=== PATIENT | female | born 1990 | race African-American/Black ===

== ENCOUNTER 2016-12-12 01:53 | Emergency (ER) | payer OTHER ==
[2016-12-12 02:02] VITALS: BP 152/80; PULSE 113; RESP 24; TEMP 97.8
[2016-12-12] MEDS ORDERED: LORazepam 1 MG TAB PO STA (02:09)
--- NOTE | 2016-12-12 02:13 | ED ---
General Adult HPI - General Chief complaint: Anxiety Stated complaint: Anxiety, 20 min attack Time Seen by Provider: 12/12/16 02:06 Source: patient, RN notes reviewed Mode of arrival: wheelchair Limitations: no limitations - History of Present Illness Initial comments: 26-year-old female presents emergency Department chief complaint of anxiety attack. Patient states she has a history of anxiety she's been more stressed lately and she went into an anxiety attack. Patient states she didn't when describing fatty mesentery past but she does not have them anymore. Patient states she has no thoughts of suicide or any homicidal thoughts. Patient states just went into her typical anxiety attack she cannot calm herself down at home so she thought that she should be seen.Patient denies any recent fever, chills, shortness of breath, chest pain, back pain, abdominal pain, nausea vomiting, numbness or tingling, dysuria or hematuria, constipation or diarrhea, headaches or visual changes, or any other current symptoms. - Related Data Home Medications Medication Instructions Recorded Confirmed [id number] Fe Control 1 tab PO DAILY 03/18/15 03/18/15 Previous Rx's Medication Instructions Recorded Ibuprofen [Motrin] 800 mg PO Q8HR PRN #21 tab 03/18/15 Ondansetron HCl [Zofran] 4 mg PO Q8HR PRN #12 tab 03/18/15 Allergies Allergy/AdvReac Type Severity Reaction Status Date / Time No Known Allergies Allergy Verified 12/12/16 02:02 Review of Systems ROS Statement: Those systems with pertinent positive or pertinent negative responses have been documented in the HPI. ROS Other: All systems not noted in ROS Statement are negative. Past Medical History Past Medical History: No Reported History Additional Past Medical History / Comment(s): ITP, bone marrow transplant age 11 History of Any Multi-Drug Resistant Organisms: None Reported Past Surgical History: No Surgical Hx Reported Additional Past Surgical History / Comment(s): Bone marrow transplant Past Anesthesia/Blood Transfusion Reactions: No Reported Reaction Past Psychological History: Anxiety Smoking Status: Former smoker Past Alcohol Use History: Occasional Past Drug Use History: Marijuana - Past Family History Mother History Unknown: Yes General Exam Limitations: no limitations General appearance: alert, anxious Neck exam: Present: normal inspection. Absent: tenderness, meningismus, lymphadenopathy Respiratory exam: Present: normal lung sounds bilaterally. Absent: respiratory distress, wheezes, rales, rhonchi, stridor Cardiovascular Exam: Present: regular rate, normal rhythm, normal heart sounds. Absent: systolic murmur, diastolic murmur, rubs, gallop, clicks Neurological exam: Present: alert, oriented X3 Psychiatric exam: Present: anxious Skin exam: Present: warm, dry, intact, normal color. Absent: rash Course Vital Signs 12/12/16 01:57 Temperature 97.8 F Pulse Rate 113 H Respiratory 24 Rate Blood Pressure 152/80 O2 Sat by Pulse 100 Oximetry Medical Decision Making - Medical Decision Making 26-year-old female presents for an acute anxiety attack. Patient has history of anxiety attacks and this is much like her normal attack. At this time we did give her an Ativan. We did give her referral forms for counselors in the area. Discussed return parameters and follow-up and all the patient's questions. They state Rahul they are negative plan. All questions have been answered. This time they will be discharged home. Disposition Clinical Impression: Acute anxiety Disposition: HOME SELF-CARE Condition: Stable Instructions: Generalized Anxiety Disorder (ED) Additional Instructions: Please use medication as discussed. Please follow up with family doctor if symptoms have not improved over the next two days. Please return to the emergency room if your symptoms increase or worsen or for any other concerns. Referrals: Leon Rogers MD [Primary Care Provider] - 1-2 days Time of Disposition: 02:12
== END 2016-12-12 02:28 | disposition home or self-care (01) ==
LOC: EC 01:53
DX: F41.9 Anxiety disorder, unspecified (principal); Z87.891 Personal history of nicotine dependence; Z79.899 Other long term (current) drug therapy
CPT/HCPCS: 99283

== ENCOUNTER → 2017-10-29 | Outpatient (CLI) | payer OTHER ==
--- NOTE | 2017-10-30 10:07 | US ---
EXAMINATION TYPE: US thyroid st tissue head/neck DATE OF EXAM: 10/29/2017 COMPARISON: NONE CLINICAL HISTORY: R22.1 right neck mass or swelling. Abnormal clinical findings GLAND SIZE: Right Lobe: 6.2 x 1.7 x 1.9 cm Overall Parenchyma: homogenous Left Lobe: 4.9 x 1.2 x 1.7 cm Overall Parenchyma: homogeneous Isthmus Thickness: 0.3 cm NODULES RIGHT: # of nodules measured on right: 0 LEFT: # of nodules measured on left: 0 ISTHMUS: # of nodules measured in the isthmus: 0 Right thyroid lobe enlarged. Bilateral neck scanned, no evidence of lymphadenopathy. IMPRESSION: 1. Enlarged right lobe thyroid
== END | disposition home or self-care (01) ==
LOC: RADUSWWP 17:04
PROVIDERS: ATTEND Internal Medicine
DX: E04.9 Nontoxic goiter, unspecified (principal)
CPT/HCPCS: 76536

== ENCOUNTER 2018-08-10 01:22 | Emergency (ER) | payer OTHER ==
[2018-08-10] MEDS ORDERED: SODIUM CHLORIDE 0.9% 500 ML 500 ML IV STA (01:44)
[2018-08-10] MEDS ORDERED: MAG HYDROX/AL HYDROX/SIMETH 30 ML CUP PO STA (01:44)
[2018-08-10 02:24] LABS: Basophils % (A) 0 %; Eosinophils # (A) 0.1 k/uL (0-0.7); Eosinophils % (A) 3 %; HCT 31.9 % (34.0-46.0); HGB 10.2 gm/dL (11.4-16.0); Hypochromasia Slight; Lymphocytes # (A) 1.8 k/uL (1.0-4.8); Lymphocytes % (A) 45 %; MCH 24.1 pg (25.0-35.0); MCHC 31.9 g/dL (31.0-37.0); MCV 75.5 fL (80.0-100.0); Microcytosis Slight; Monocytes # (A) 0.2 k/uL (0-1.0); Monocytes % (A) 6 %; Neutrophils # (A) 1.6 k/uL (1.3-7.7); Neutrophils % (A) 42 %; Platelet Count 209 k/uL (150-450); RBC 4.22 m/uL (3.80-5.40); RDW 15.7 % (11.5-15.5); WBC 3.9 k/uL (3.8-10.6)
[2018-08-10 02:34] LABS: ALT 11 U/L (9-52); AST 40 U/L (14-36); Albumin 4.4 g/dL (3.5-5.0); Alkaline Phosphatase 96 U/L (38-126); Anion Gap 9 mmol/L; Blood Urea Nitrogen 13 mg/dL (7-17); Calcium 9.8 mg/dL (8.4-10.2); Carbon Dioxide 23 mmol/L (22-30); Chloride 105 mmol/L (98-107); Glucose 94 mg/dL (74-99); Magnesium 1.9 mg/dL (1.6-2.3); Sodium 137 mmol/L (137-145); Total Bilirubin 0.9 mg/dL (0.2-1.3); Total Protein 7.3 g/dL (6.3-8.2)
[2018-08-10 02:40] LABS: D-Dimer 0.27 mg/L FEU (<0.60); Partial Thromboplastin Time 24.9 sec (22.0-30.0); Potassium 3.9 mmol/L (3.5-5.1); Prothrombin Time 10.7 sec (9.0-12.0)
--- NOTE | 2018-08-10 02:51 | XR ---
EXAM: XR Chest, 2 Views CLINICAL HISTORY: ITS.REASON XR Reason: Chest Pain TECHNIQUE: Frontal and lateral views of the chest. COMPARISON: No relevant prior studies available. FINDINGS: Lungs: Unremarkable. No consolidation. Pleural space: Unremarkable. No pneumothorax. Heart: Unremarkable. No cardiomegaly. Mediastinum: Unremarkable. Bones/joints: Unremarkable. IMPRESSION: Normal chest x-rays.
--- NOTE | 2018-08-10 02:54 | ED ---
Chest Pain HPI - General Chief Complaint: Chest Pain Stated Complaint: CHEST PAIN Time Seen by Provider: 08/10/18 01:33 Source: patient Mode of arrival: wheelchair Limitations: no limitations - History of Present Illness Initial Comments: 28-year-old female patient presents to the emergency department today for evaluation of chest pain. Patient say she has had the pain for the last 6-1/2 hours. Patient states she's been having a lot of abdominal gas throughout the day, states she can feel her stomach rumbling. Patient states the pressure has throughout the day and started radiating into her chest. States the pain started across her entire chest, then migrated to the left side. Patient states the pain increases and takes a deep breath. Patient states the pain has been intermittent. She denies any cough or hemoptysis with this. Denies any history of similar symptoms. Denies taking any medication for symptom relief. She denies any shortness of breath, fever, chills denies any radiation of the pain to her back. Denies any use of oral contraceptives. Denies any calf pain, leg swelling, recent travel, or history of DVT. Patient denies any recent rash, nausea, vomiting, diarrhea, constipation, back pain, numbness, tingling, dizziness, weakness, hematuria, dysuria, urinary urgency, urinary frequency, headache, visual changes, or any other complaints. - Related Data Home Medications Medication Instructions Recorded Confirmed Dextroamphetamine/Amphetamine 20 mg PO DAILY 08/10/18 08/10/18 [Adderall] Allergies Allergy/AdvReac Type Severity Reaction Status Date / Time No Known Allergies Allergy Verified 12/12/16 02:02 Review of Systems ROS Statement: Those systems with pertinent positive or pertinent negative responses have been documented in the HPI. ROS Other: All systems not noted in ROS Statement are negative. EKG Findings - EKG Comments: EKG Findings:: EKG obtained at shows normal sinus rhythm with a ventricular rate is 72, AR interval 188, QRS duration 98, QT 380, QTc 416. No evidence of ST elevation or depression. Past Medical History Past Medical History: No Reported History Additional Past Medical History / Comment(s): ITP, bone marrow transplant age 11 History of Any Multi-Drug Resistant Organisms: None Reported Past Surgical History: No Surgical Hx Reported Additional Past Surgical History / Comment(s): Bone marrow transplant Past Anesthesia/Blood Transfusion Reactions: No Reported Reaction Past Psychological History: Anxiety Smoking Status: Former smoker Past Alcohol Use History: Occasional Past Drug Use History: Marijuana - Past Family History Mother History Unknown: Yes General Exam Limitations: no limitations Course Vital Signs 08/10/18 01:26 Temperature 98.4 F Pulse Rate 83 Respiratory 20 Rate Blood Pressure 115/68 O2 Sat by Pulse 99 Oximetry Chest Pain [facility]: Two-view x-ray of the chest is obtained. Report was reviewed in its entirety. Impression by Dr. Solomon shows normal chest x-rays. MDM: 28 year-old female patient presented to the emergency department today for evaluation of chest pain. She also reports abdominal gas and bloating. Physical examination is unremarkable. Abdomen is soft and nontender tender. Lungs are clear to auscultation with good air movement. Vital signs are stable. Labs reviewed and are unremarkable. Negative d-dimer, negative troponin. Chest x-ray shows no acute cardiopulmonary process. Did discuss findings and results with the patient which is given a dose of Maalox here in the emergency department. She'll be discharged this time to follow-up with her primary care physician for recheck in 1-2 days. Return parameters discussed in detail. She verbalizes understanding and agrees with this plan. Disposition Clinical Impression: Chest pain Disposition: HOME SELF-CARE Condition: Good Instructions (If sedation given, give patient instructions): Chest Pain (ED) Additional Instructions: Continue [id number] gas medication as necessary. Follow-up with her primary care physician for recheck in 1-2 days. Return to the emergency department immediately for any new, worsening, or concerning symptoms Is patient prescribed a controlled substance at d/c from ED?: No Referrals: Leon Rogers MD [Primary Care Provider] - 1-2 days Time of Disposition: 02:54
[2018-08-10 03:30] VITALS: BP 136/69; PULSE 59; RESP 14; TEMP 98.2
== END 2018-08-10 03:30 | disposition home or self-care (01) ==
LOC: EC 01:22
DX: R07.9 Chest pain, unspecified (principal); Z79.899 Other long term (current) drug therapy; Z87.891 Personal history of nicotine dependence; Z94.81 Bone marrow transplant status
CPT/HCPCS: 36415; 71046; 80053; 83735; 84484; 85025; 85379; 85610; 85730; 93005; 99285

== ENCOUNTER 2019-01-07 00:26 | Emergency (ER) | payer BC, OTHER ==
[2019-01-07 00:31] VITALS: BP 142/89; PULSE 90; RESP 18; TEMP 98
[2019-01-07] MEDS ORDERED: SULFAMETH-TMP DS STARTER PACK 2 TAB BTL PO STA (01:04)
--- NOTE | 2019-01-07 01:06 | ED ---
Skin/Abscess/FB HPI - General Chief complaint: Skin/Abscess/Foreign Body Stated complaint: Abscess/redness on breast Time Seen by Provider: 01/07/19 00:47 Source: patient Mode of arrival: ambulatory - History of Present Illness Initial comments: 28 year-old female patient presents to the emergency department today for evaluation of painful itchy lesions to her breast. Patient states she notices over the last 2 days. Patient states that she is concerned for possible bug bite. She denies any fever or chills. Denies any significant pain to the area. States the areas are mildly itchy. Denies any drainage from the lesions or her nipples. Patient states she has had abscess to her left axilla in the past, this was never cultured. She denies taking any medication for her symptoms. Patient denies any recent shortness breath, chest pain, abdominal pain, nausea, vomiting, diarrhea, constipation, back pain, numbness, tingling, dizziness, weakness, hematuria, dysuria, urinary urgency, urinary frequency, headache, visual changes, or any other complaints. - Related Data Home Medications Medication Instructions Recorded Confirmed Dextroamphetamine/Amphetamine 20 mg PO DAILY 08/10/18 08/10/18 [Adderall] Previous Rx's Medication Instructions Recorded Hydrocortisone Cream 1 applic TOPICAL TID PRN #15 gm 01/07/19 [Hydrocortisone 1% Cream] Sulfamethoxazole/Trimethoprim 1 each PO BID #20 tablet 01/07/19 [Bactrim DS 800-160 mg] Allergies Allergy/AdvReac Type Severity Reaction Status Date / Time No Known Allergies Allergy Verified 01/07/19 00:31 Review of Systems ROS Statement: Those systems with pertinent positive or pertinent negative responses have been documented in the HPI. ROS Other: All systems not noted in ROS Statement are negative. Past Medical History Past Medical History: No Reported History Additional Past Medical History / Comment(s): ITP, bone marrow transplant age 11 History of Any Multi-Drug Resistant Organisms: None Reported Past Surgical History: No Surgical Hx Reported Additional Past Surgical History / Comment(s): Bone marrow transplant Past Anesthesia/Blood Transfusion Reactions: No Reported Reaction Past Psychological History: Anxiety Smoking Status: Former smoker Past Alcohol Use History: Occasional Past Drug Use History: Marijuana - Past Family History Mother History Unknown: Yes General Exam General appearance: alert, in no apparent distress, other (Physical well- developed, well-nourished adult female patient in no acute distress. Vital signs upon presentation are temperature 98.0F, pulse 90, respirations 18, blood pressure 142/89, pulse ox 100% on room air.) Eye exam: Present: normal appearance, PERRL, EOMI. Absent: scleral icterus, conjunctival injection, periorbital swelling Respiratory exam: Present: normal lung sounds bilaterally. Absent: respiratory distress, wheezes, rales, rhonchi, stridor Cardiovascular Exam: Present: regular rate, normal rhythm, normal heart sounds. Absent: systolic murmur, diastolic murmur, rubs, gallop, clicks Neurological exam: Present: alert, oriented X3, CN II-XII intact Psychiatric exam: Present: normal affect, normal mood Skin exam: Present: warm, dry, intact, normal color, other (Patient has two reddened, circular lesions on the left breast, both 1cm in diameter. No drain age. No fluctuance. There is some induration. ). Absent: rash Course Vital Signs 01/07/19 00:29 Temperature 98 F Pulse Rate 90 Respiratory 18 Rate Blood Pressure 142/89 O2 Sat by Pulse 100 Oximetry Medical Decision Making - Medical Decision Making 28 old female patient percents to the emergency department today for evaluation of lesions to the left breast. Patient states they are mildly painful and somewhat itchy. There is no drainage. These could be early abscess or bug b ites. Patient be given prescription for hydrocortisone cream and Bactrim. She is instructed to apply warm compresses. She is instructed to follow-up with her primary care physician for recheck in 1-2 days. Return parameters were discussed in detail. She verbalizes understanding and agrees with this plan. Disposition Clinical Impression: Breast abscess Disposition: HOME SELF-CARE Condition: Good Instructions (If sedation given, give patient instructions): Insect Bite or S ting (ED), Abscess (ED) Additional Instructions: Complete antibiotic prescription in full. Apply hydrocortisone cream 2-3 times per day. Apply warm compresses 2-3 times per day. Follow-up with her primary care physician for recheck in 1-2 days. Return to the emergency department immediately for any new, worsening, or concerning symptoms. Prescriptions: Sulfamethoxazole/Trimethoprim [Bactrim DS 800-160 mg] 1 each PO BID #20 tablet Hydrocortisone Cream [Hydrocortisone 1% Cream] 1 applic TOPICAL TID PRN #15 gm PRN Reason: Itching Is patient prescribed a controlled substance at d/c from ED?: No Referrals: Leon Rogers MD [Primary Care Provider] - 1-2 days Time of Disposition: 01:05
== END 2019-01-07 01:32 | disposition home or self-care (01) ==
LOC: EC 00:26
DX: N61.1 Abscess of the breast and nipple (principal); Z87.891 Personal history of nicotine dependence; Z87.2 Personal history of diseases of the skin and subcutaneous tissue
CPT/HCPCS: 99283

== ENCOUNTER 2019-08-09 19:04 | Inpatient (IN) | payer BC, OTHER ==
[2019-08-09] MEDS ORDERED: SODIUM CHLORIDE 0.9% 1,000 ML IV ONE (19:43)
[2019-08-09] MEDS ORDERED: ACETAMINOPHEN TAB 325 MG TAB PO STA (19:43)
--- NOTE | 2019-08-09 20:04 | ED ---
General Adult HPI - General Chief complaint: Nausea/Vomiting/Diarrhea Stated complaint: Dehydration Time Seen by Provider: 08/09/19 19:14 Source: patient, RN notes reviewed, old records reviewed Mode of arrival: wheelchair Limitations: no limitations - History of Present Illness Initial comments: 29-year-old female patient presents to evaluation of cough, fever, nausea for the last 2 weeks. Reports generalized myalgias. Patient concerned that she has grown worse. Reports that she did have episodes of nausea and vomiting today when she was brushing her teeth and she gagged on the toothbrush. Denies chest pain. Denies any other complaints at this time. Systemic: Pt denies fatigue, rash. Pt denies weakness, night sweats, weight loss. Neuro: Pt denies headache, visual disturbances, syncope or pre-syncope. HEENT: Pt denies ocular discharge or irritation, otalgia, rhinorrhea, pharyngitis or notable lymphadenopathy. Cardiopulmonary: Pt denies chest pain, SOB, heart palpitations, dyspnea on exertion. Abdominal/GI: Pt denies abdominal pain, n/v/d. : Pt denies dysuria, burning w/ urination, frequency/urgency. Denies new onset urinary or bowel incontinence. MSK: Pt denies myalgia, loss of strength or function in extremities. Neuro: Pt denies new onset weakness, paresthesias. - Related Data Home Medications Medication Instructions Recorded Confirmed Dextroamphetamine/Amphetamine 20 mg PO DAILY 08/10/18 08/10/18 [Adderall] Previous Rx's Medication Instructions Recorded Hydrocortisone Cream 1 applic TOPICAL TID PRN #15 gm 01/07/19 [Hydrocortisone 1% Cream] Sulfamethoxazole/Trimethoprim 1 each PO BID #20 tablet 01/07/19 [Bactrim DS 800-160 mg] Allergies Allergy/AdvReac Type Severity Reaction Status Date / Time amoxicillin Allergy Unknown Verified 08/09/19 19:08 Review of Systems ROS Statement: Those systems with pertinent positive or pertinent negative responses have been documented in the HPI. ROS Other: All systems not noted in ROS Statement are negative. Past Medical History Past Medical History: No Reported History Additional Past Medical History / Comment(s): ITP, bone marrow transplant age 11 History of Any Multi-Drug Resistant Organisms: None Reported Past Surgical History: No Surgical Hx Reported Additional Past Surgical History / Comment(s): Bone marrow transplant Past Anesthesia/Blood Transfusion Reactions: No Reported Reaction Past Psychological History: Anxiety Smoking Status: Former smoker Past Alcohol Use History: None Reported Past Drug Use History: None Reported - Past Family History Mother History Unknown: Yes General Exam - General Exam Comments Initial Comments: Constitutional: NAD, AOX3, Pt has pleasant affect. HEENT: NC/AT, trachea midline, neck supple, no lymphadenopathy. Posterior pharynx non erythematous, without exudates. External ears appear normal, without discharge. Mucous membranes moist. Eyes PERRLA, EOM intact. There is no scleral icterus. No pallor noted. Cardiopulmonary: RRR, no murmurs, rubs or gallops, no JVD noted. Lungs CTAB in anterior and posterior ghotra. No peripheral edema. Abdominal exam: Abdomen soft and non-distended. Abdomen non-tender to palpation in all 4 quadrants. Bowel sounds active in LLQ. No hepatosplenomegaly. No ecchymosis Neuro: CN II-XII grossly intact. No nuchal rigidity. No raccon eyes, no traore sign, no hemotympanum. No cervical spinal tenderness. MSK: No posterior calf tenderness bilaterally, homans sign negative bilaterally. Posterior tibialis and radial pulse +2 bilaterally. Sensation intact in upper and lower extremities. Full active ROM in upper and lower extremities, 5/5 stregnth. Limitations: no limitations Course Vital Signs 08/09/19 08/09/19 19:06 22:14 Temperature 99.8 F H Pulse Rate 90 81 Respiratory 18 20 Rate Blood Pressure 121/83 127/80 O2 Sat by Pulse 98 99 Oximetry Medical Decision Making - Medical Decision Making 29-year-old male patient presents ED for evaluation of cough fever last 2 weeks. Some nausea and vomiting. Vital signs stable. Physical exam is acute pathology. Patient coughing in the room. Laboratory investigations are significant for patient being covered positive. Chest x-ray displayed a bilateral pneumonia. Patient is not in acute respiratory distress.Pt will be admitted for further evaluation and monitoring. Case discussed with Dr. Wetzel. - Lab Data Result diagrams: 08/09/19 20:08 08/09/19 20:08 Lab Results 08/09/19 08/09/19 08/09/19 Range/Units 19:45 20:05 20:05 WBC (3.8-10.6) k/uL RBC (3.80-5.40) m/uL Hgb (11.4-16.0) gm/dL Hct (34.0-46.0) % MCV (80.0-100.0) fL MCH (25.0-35.0) pg MCHC (31.0-37.0) g/dL RDW (11.5-15.5) % Plt Count (150-450) k/uL Neutrophils % % Lymphocytes % % Monocytes % % Eosinophils % % Basophils % % Neutrophils # (1.3-7.7) k/uL Lymphocytes # (1.0-4.8) k/uL Monocytes # (0-1.0) k/uL Eosinophils # (0-0.7) k/uL Basophils # (0-0.2) k/uL Hypochromasia Microcytosis Sodium (137-145) mmol/L Potassium (3.5-5.1) mmol/L Chloride (98-107) mmol/L Carbon Dioxide (22-30) mmol/L Anion Gap mmol/L BUN (7-17) mg/dL Creatinine (0.52-1.04) mg/dL Est GFR (CKD-EPI)AfAm (>60 ml/min/1.73 sqM) Est GFR (CKD-EPI)NonAf (>60 ml/min/1.73 sqM) Glucose (74-99) mg/dL Plasma Lactic Acid Shorty (0.7-2.0) mmol/L Calcium (8.4-10.2) mg/dL Total Bilirubin (0.2-1.3) mg/dL AST (14-36) U/L ALT (4-34) U/L Alkaline Phosphatase (38-126) U/L Total Protein (6.3-8.2) g/dL Albumin (3.5-5.0) g/dL Urine Color Yellow Urine Appearance Cloudy H (Clear) Urine pH 6.5 (5.0-8.0) Ur Specific [place] 1.010 (1.001-1.035) Urine Protein 1+ H (Negative) Urine Glucose (UA) Negative (Negative) Urine Ketones Negative (Negative) Urine Blood Negative (Negative) Urine Nitrite Negative (Negative) Urine Bilirubin Negative (Negative) Urine Urobilinogen <2.0 (<2.0) mg/dL Ur Leukocyte Esterase Negative (Negative) Urine RBC 1 (0-5) /hpf Urine WBC 1 (0-5) /hpf Ur Squamous Epith Cells 9 H (0-4) /hpf Urine Bacteria Rare H (None) /hpf Urine Mucus Rare H (None) /hpf Urine HCG, Qual Not Detected (Not Detectd) Coronavirus (PCR) Detected A (Not Detectd) 08/09/19 08/09/19 08/09/19 Range/Units 20:08 20:08 20:08 WBC 4.7 (3.8-10.6) k/uL RBC 4.71 (3.80-5.40) m/uL Hgb 11.1 L (11.4-16.0) gm/dL Hct 35.5 (34.0-46.0) % MCV 75.5 L (80.0-100.0) fL MCH 23.5 L (25.0-35.0) pg MCHC 31.2 (31.0-37.0) g/dL RDW 15.0 (11.5-15.5) % Plt Count 209 (150-450) k/uL Neutrophils % 72 % Lymphocytes % 20 % Monocytes % 4 % Eosinophils % 0 % Basophils % 0 % Neutrophils # 3.4 (1.3-7.7) k/uL Lymphocytes # 0.9 L (1.0-4.8) k/uL Monocytes # 0.2 (0-1.0) k/uL Eosinophils # 0.0 (0-0.7) k/uL Basophils # 0.0 (0-0.2) k/uL Hypochromasia Marked Microcytosis Slight Sodium 134 L (137-145) mmol/L Potassium 4.0 (3.5-5.1) mmol/L Chloride 94 L (98-107) mmol/L Carbon Dioxide 29 (22-30) mmol/L Anion Gap 11 mmol/L BUN 11 (7-17) mg/dL Creatinine 0.86 (0.52-1.04) mg/dL Est GFR (CKD-EPI)AfAm >90 (>60 ml/min/1.73 sqM) Est GFR (CKD-EPI)NonAf >90 (>60 ml/min/1.73 sqM) Glucose 97 (74-99) mg/dL Plasma Lactic Acid Shorty 1.2 (0.7-2.0) mmol/L Calcium 9.0 (8.4-10.2) mg/dL Total Bilirubin 0.9 (0.2-1.3) mg/dL AST 47 H (14-36) U/L ALT 33 (4-34) U/L Alkaline Phosphatase 111 (38-126) U/L Total Protein 7.7 (6.3-8.2) g/dL Albumin 4.2 (3.5-5.0) g/dL Urine Color Urine Appearance (Clear) Urine pH (5.0-8.0) Ur Specific [place] (1.001-1.035) Urine Protein (Negative) Urine Glucose (UA) (Negative) Urine Ketones (Negative) Urine Blood (Negative) Urine Nitrite (Negative) Urine Bilirubin (Negative) Urine Urobilinogen (<2.0) mg/dL Ur Leukocyte Esterase (Negative) Urine RBC (0-5) /hpf Urine WBC (0-5) /hpf Ur Squamous Epith Cells (0-4) /hpf Urine Bacteria (None) /hpf Urine Mucus (None) /hpf Urine HCG, Qual (Not Detectd) Coronavirus (PCR) (Not Detectd) Disposition Clinical Impression: COVID-19, Pneumonia Disposition: ADMITTED IP TO THIS HOSP Condition: Serious Is patient prescribed a controlled substance at d/c from ED?: No
[2019-08-09 20:32] LABS: Basophils % (A) 0 %; Eosinophils % (A) 0 %; HCT 35.5 % (34.0-46.0); HGB 11.1 gm/dL (11.4-16.0); Hypochromasia Marked; Lymphocytes # (A) 0.9 k/uL (1.0-4.8); Lymphocytes % (A) 20 %; MCH 23.5 pg (25.0-35.0); MCHC 31.2 g/dL (31.0-37.0); MCV 75.5 fL (80.0-100.0); Mean Platelet Volume 7.3; Microcytosis Slight; Monocytes # (A) 0.2 k/uL (0-1.0); Monocytes % (A) 4 %; Neutrophils # (A) 3.4 k/uL (1.3-7.7); Neutrophils % (A) 72 %; Platelet Count 209 k/uL (150-450); RBC 4.71 m/uL (3.80-5.40); WBC 4.7 k/uL (3.8-10.6)
[2019-08-09 20:36] LABS: Appearance,Urine Cloudy (Clear); Bacteria,Urine Rare /hpf; Bilirubin,Urine Negative (Negative); Blood,Urine Negative (Negative); Color,Urine Yellow; Glucose,Urine (UA) Negative (Negative); Ketones,Urine Negative (Negative); Leukocyte Esterase,Urine Negative (Negative); Mucus,Urine Rare /hpf; Nitrite,Urine Negative (Negative); PH, Urine 6.5 (5.0-8.0); Protein,Urine 1+ (Negative); RBC,Urine 1 /hpf (0-5); Squamous Epithelial Cell,Urine 9 /hpf (0-4); Urobilinogen,Urine <2.0 mg/dL (<2.0); WBC,Urine 1 /hpf (0-5)
[2019-08-09 20:54] LABS: ALT 33 U/L (4-34); AST 47 U/L (14-36); African American GFR (CKD) >90 (>60 ml/min/1.73 sqM); Albumin 4.2 g/dL (3.5-5.0); Alkaline Phosphatase 111 U/L (38-126); Anion Gap 11 mmol/L; Blood Urea Nitrogen 11 mg/dL (7-17); Carbon Dioxide 29 mmol/L (22-30); Chloride 94 mmol/L (98-107); Glucose 97 mg/dL (74-99); Non-African American GFR(CKD) >90 (>60 ml/min/1.73 sqM); Sodium 134 mmol/L (137-145); Total Bilirubin 0.9 mg/dL (0.2-1.3); Total Protein 7.7 g/dL (6.3-8.2)
--- NOTE | 2019-08-09 21:06 | XR ---
EXAMINATION TYPE: XR chest 1V DATE OF EXAM: 08/09/2019 COMPARISON: 08/10/2018 HISTORY: Cough. Vomiting. TECHNIQUE: Single view FINDINGS: There is bilateral patchy airspace pneumonic infiltrate in the mid and lower lung ghotra. T here is no heart failure. Heart appears borderline enlarged. Bony thorax is intact. IMPRESSION: There is bilateral lower lobe pneumonia that appears new compared to old exam.
[2019-08-09] MEDS ORDERED: AZITHROMYCIN 500 MG TAB PO STA (21:13)
[2019-08-09] MEDS ORDERED: ACETAMINOPHEN TAB 325 MG TAB PO PRN (21:35)
[2019-08-09] MEDS ORDERED: NALOXONE 0.4 MG/ML 1 ML VIAL IV PRN (21:35)
[2019-08-10 08:04] LABS: Magnesium 2.2 mg/dL (1.6-2.3)
[2019-08-10 08:06] LABS: INR 1.1 (<1.2); Partial Thromboplastin Time 25.3 sec (22.0-30.0); Prothrombin Time 11.1 sec (9.0-12.0)
[2019-08-10 09:12] LABS: C Reactive Protein 82.1 mg/L (<10.0)
[2019-08-10] MEDS: SODIUM CHLORIDE 0.9% 1,000 ML IV SCH ×2 (11:23→20:32)
--- NOTE | 2019-08-10 11:48 | P.HPIM ---
History of Present Illness 29-year-old the female came in with complains of myalgias fever cough has been going on for about a week patient is not exposed to anyone after these symptoms. Patient denied any recent family members that were diagnosed with colon 19. Patient is for positive for cocaine 19 patient is not on Lanoxin but still feels weak and rundown. Patient had nausea and vomiting yesterday. Patient had a chest x-ray which is showing bilateral lower lobe infiltrates. Patient has increased LDH and mildly elevated d-dimer and C-reactive protein is elevated, patient has mild lymphopenia. Review of Systems REVIEW OF SYSTEMS: CONSTITUTIONAL: As mentioned in HPI HEENT: No recent visual problems or hearing problems. Denied any sore throat. CARDIOVASCULAR: No chest pain, orthopnea, PND, no palpitations, no syncope. PULMONARY: No shortness of breath, no cough, no hemoptysis. GASTROINTESTINAL: No diarrhea, no nausea, no vomiting, no abdominal pain. NEUROLOGICAL: No headaches, no weakness, no numbness. HEMATOLOGICAL: Denies any bleeding or petechiae. GENITOURINARY: Denies any burning micturition, frequency, or urgency. MUSCULOSKELETAL/RHEUMATOLOGICAL: Denies any joint pain, swelling, or any muscle pain. ENDOCRINE: Denies any polyuria or polydipsia. The rest of the 14-point review of systems is negative. Past Medical History Past Medical History: No Reported History Additional Past Medical History / Comment(s): ITP, bone marrow transplant age 11 History of Any Multi-Drug Resistant Organisms: None Reported Past Surgical History: No Surgical Hx Reported Additional Past Surgical History / Comment(s): Bone marrow transplant Past Anesthesia/Blood Transfusion Reactions: No Reported Reaction Past Psychological History: Anxiety Smoking Status: Former smoker Past Alcohol Use History: None Reported Past Drug Use History: None Reported - Past Family History Mother History Unknown: Yes Family Medical History: Cancer Medications and Allergies Home Medications Medication Instructions Recorded Confirmed Type No Known Home Medications 08/10/19 08/10/19 History Allergies Allergy/AdvReac Type Severity Reaction Status Date / Time amoxicillin Allergy Unknown Verified 08/10/19 07:51 Physical Exam Vitals: Vital Signs Temp Pulse Pulse Resp BP BP BP 08/10/19 11:13 98.4 F 81 18 120/66 08/10/19 07:00 99.2 F 78 20 122/77 05/04/20 03:00 98.2 F 68 20 105/69 08/10/19 00:06 100.8 F H 77 20 113/64 08/10/19 00:00 16 08/09/19 23:50 100.7 F H 08/09/19 23:00 77 20 113/87 08/09/19 22:14 81 20 127/80 08/09/19 21:59 99.8 F H 16 132/79 08/09/19 19:06 99.8 F H 90 18 121/83 Pulse Ox 08/10/19 11:13 97 08/10/19 07:00 99 08/10/19 03:00 96 08/10/19 00:06 96 08/10/19 00:00 08/09/19 23:50 08/09/19 23:00 96 08/09/19 22:14 99 08/09/19 21:59 94 L 08/09/19 19:06 98 Intake and Output 08/09/19 08/10/19 08/10/19 22:59 06:59 14:59 Intake Total 300 50 Output Total 1300 Balance -1000 50 Intake: Oral 300 50 Output: Urine 1300 Other: Voiding Method Toilet Weight 113.398 kg PHYSICAL EXAMINATION: GENERAL: The patient is alert and oriented x3, not in any acute distress. Well developed, well nourished. HEENT: Pupils are round and equally reacting to light. EOMI. No scleral icterus. No conjunctival pallor. Normocephalic, atraumatic. No pharyngeal erythema. No thyromegaly. CARDIOVASCULAR: S1 and S2 present. No murmurs, rubs, or gallops. PULMONARY: Chest is clear to auscultation, no wheezing or crackles. ABDOMEN: Soft, nontender, nondistended, normoactive bowel sounds. No palpable organomegaly. MUSCULOSKELETAL: No joint swelling or deformity. EXTREMITIES: No cyanosis, clubbing, or pedal edema. NEUROLOGICAL: Gross neurological examination did not reveal any focal deficits. SKIN: No rashes. Note: Because of COVID 19 isolation, some of the history and physical exam find ings or indirect and obtained from nursing staff, and other physician examinations to avoid unnecessary contact with the patient. Results CBC & Chem 7: 08/09/19 20:08 08/09/19 20:08 Labs: Abnormal Lab Results - Last 24 Hours (Table) 05/03/20 05/03/20 05/03/20 Range/Units 19:45 20:05 20:08 Hgb 11.1 L (11.4-16.0) gm/dL MCV 75.5 L (80.0-100.0) fL MCH 23.5 L (25.0-35.0) pg Lymphocytes # 0.9 L (1.0-4.8) k/uL D-Dimer (<0.60) mg/L FEU Sodium (137-145) mmol/L Chloride (98-107) mmol/L AST (14-36) U/L Lactate Dehydrogenase (313-618) U/L C-Reactive Protein (<10.0) mg/L Urine Appearance Cloudy H (Clear) Urine Protein 1+ H (Negative) Ur Squamous Epith Cells 9 H (0-4) /hpf Urine Bacteria Rare H (None) /hpf Urine Mucus Rare H (None) /hpf Coronavirus (PCR) Detected A (Not Detectd) 08/09/19 08/10/19 08/10/19 Range/Units 20:08 07:25 07:25 Hgb (11.4-16.0) gm/dL MCV (80.0-100.0) fL MCH (25.0-35.0) pg Lymphocytes # (1.0-4.8) k/uL D-Dimer 0.70 H (<0.60) mg/L FEU Sodium 134 L (137-145) mmol/L Chloride 94 L (98-107) mmol/L AST 47 H (14-36) U/L Lactate Dehydrogenase 635 H (313-618) U/L C-Reactive Protein 82.1 H (<10.0) mg/L Urine Appearance (Clear) Urine Protein (Negative) Ur Squamous Epith Cells (0-4) /hpf Urine Bacteria (None) /hpf Urine Mucus (None) /hpf Coronavirus (PCR) (Not Detectd) Assessment and Plan Plan: -Sepsis secondary to Covid 19 infection, patient will be monitored of one more night continue with IV fluid supportive care. She is not hypoxic because of which patient is not being started on systemic steroids at this time. Patient was given a dose of azithromycin. Patient will be evaluated by pulmonary. -Hypovolemic hyponatremia probably from nausea vomiting IV fluids as mentioned above -Chest x-ray findings of bilateral lower lobe infiltrates probably secondary to above-mentioned infection. -Anxiety disorder. -DVT prophylaxis early ambulation. Patient had history of ITP with bone marrow transplant at age 11
[2019-08-10 11:53] LABS: Ferritin 63.3 ng/mL (10.0-291.0)
--- NOTE | 2019-08-10 12:12 | P.CNPUL ---
History of Present Illness Consult date: 08/10/19 Requesting physician: William Alexandre Reason for consult: dyspnea, abnormal CXR/CT Chief complaint: Shortness of breath, cough, congestion History of present illness: This is a very pleasant 29-year-old female patient who follows with Dr. Rogers as her primary care provider. 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 Otherwise she is healthy. No chronic illnesses. No known home medications. She is active and rides her bike often. She has been having ongoing issues over the past 2 weeks with cough congestion fever generalized weakness and fatigue and myalgias. She presented here to the emergency room yesterday for the same. She did test positive for the CoVID 19 virus. Chest x-ray revealed bilateral lower lobe pneumonia. White count 4.7. Hemoglobin 9.1. D-dimer 0.7. Sodium 134. Potassium 4.0. Creatinine 0.86. LDH 635. C-reactive protein 82. She is seen today in follow-up in the regular medical floor. She is awake and alert in no acute distress. She is maintaining good O2 saturations in the 90s on room air. She has had a T-max of 100.8. Currently afebrile. She is still quite weak and fatigued. Review of Systems REVIEW OF SYSTEMS: CONSTITUTIONAL: Denies any recent significant weight loss or weight gain. EYES: Denies change in vision. EARS, NOSE, MOUTH, THROAT: Denies headaches, positive for sore throat. CARDIOVASCULAR: Denies chest pain, palpitations or syncopal episodes. RESPIRATORY: Positive for shortness of breath, cough, congestion no hemoptysis. GASTROINTESTINAL: Denies change in appetite, denies abdominal pain GENITOURINARY: Denies hematuria, denies infections. MUSKULOSKELETAL: Denies pain, denies swelling. INTEGUMENTARY: Denies rash, denies eczema. NEUROLOGICAL: Denies recent memory loss, no recent seizure activity. PSYCHIATRIC: Denies anxiety, denies depression. HEMATOLOGIC/LYMPHATIC: Denies anemia, denies enlarged lymph nodes. Past Medical History Past Medical History: No Reported History Additional Past Medical History / Comment(s): ITP, bone marrow transplant age 11 History of Any Multi-Drug Resistant Organisms: None Reported Past Surgical History: No Surgical Hx Reported Additional Past Surgical History / Comment(s): Bone marrow transplant Past Anesthesia/Blood Transfusion Reactions: No Reported Reaction Past Psychological History: Anxiety Smoking Status: Former smoker Past Alcohol Use History: None Reported Past Drug Use History: None Reported - Past Family History Mother History Unknown: Yes Family Medical History: Cancer Medications and Allergies Home Medications Medication Instructions Recorded Confirmed Type No Known Home Medications 08/10/19 08/10/19 History Allergies Allergy/AdvReac Type Severity Reaction Status Date / Time amoxicillin Allergy Unknown Verified 08/10/19 07:51 Physical Exam Vitals: Vital Signs Temp Pulse Pulse Resp BP BP BP 08/10/19 11:13 98.4 F 81 18 120/66 08/10/19 07:00 99.2 F 78 20 122/77 08/10/19 03:00 98.2 F 68 20 105/69 08/10/19 00:06 100.8 F H 77 20 113/64 08/10/19 00:00 16 08/09/19 23:50 100.7 F H 08/09/19 23:00 77 20 113/87 08/09/19 22:14 81 20 127/80 08/09/19 21:59 99.8 F H 16 132/79 08/09/19 19:06 99.8 F H 90 18 121/83 Pulse Ox 08/10/19 11:13 97 08/10/19 07:00 99 08/10/19 03:00 96 08/10/19 00:06 96 08/10/19 00:00 08/09/19 23:50 08/09/19 23:00 96 08/09/19 22:14 99 08/09/19 21:59 94 L 08/09/19 19:06 98 Intake and Output 08/09/19 08/10/19 08/10/19 22:59 06:59 14:59 Intake Total 300 50 Output Total 1300 Balance -1000 50 Intake: Oral 300 50 Output: Urine 1300 Other: Voiding Method Toilet Weight 113.398 kg GENERAL EXAM: Alert, weak, fatigued, pleasant 29-year-old female patient, on room air, comfortable in no apparent distress. HEAD: Normocephalic. EYES: Normal reaction of pupils, equal size. NOSE: Clear with pink turbinates. THROAT: No erythema or exudates. NECK: No masses, no JVD. CHEST: No chest wall deformity. LUNGS: Equal air entry with crackles in the bilateral posterior bases. CVS: S1 and S2 normal with no audible murmur, regular rhythm. ABDOMEN: No hepatosplenomegaly, normal bowel sounds, no guarding or rigidity. SPINE: No scoliosis or deformity SKIN: No rashes CENTRAL NERVOUS SYSTEM: No focal deficits, tone is normal in all 4 extremities. EXTREMITIES: There is no peripheral edema. No clubbing, no cyanosis. Peripheral pulses are intact. Results - Laboratory Findings CBC and BMP: 08/09/19 20:08 08/09/19 20:08 PT/INR, D-dimer PT 11.1 sec (9.0-12.0) 08/10/19 07:25 INR 1.1 (<1.2) 08/10/19 07:25 D-Dimer 0.70 mg/L FEU (<0.60) H 08/10/19 07:25 Abnormal lab findings: Abnormal Labs 08/09/19 08/09/19 08/09/19 19:45 20:05 20:08 Hgb 11.1 L MCV 75.5 L MCH 23.5 L Lymphocytes # 0.9 L D-Dimer Sodium Chloride AST Lactate Dehydrogenase C-Reactive Protein Urine Appearance Cloudy H Urine Protein 1+ H Ur Squamous Epith Cells 9 H Urine Bacteria Rare H Urine Mucus Rare H Coronavirus (PCR) Detected A 08/09/19 08/10/19 08/10/19 20:08 07:25 07:25 Hgb MCV MCH Lymphocytes # D-Dimer 0.70 H Sodium 134 L Chloride 94 L AST 47 H Lactate Dehydrogenase 635 H C-Reactive Protein 82.1 H Urine Appearance Urine Protein Ur Squamous Epith Cells Urine Bacteria Urine Mucus Coronavirus (PCR) - Diagnostic Findings Chest x-ray: image reviewed Assessment and Plan Assessment: Acute CoVID 19 pneumonia Elevated inflammatory markers secondary to above History of bone marrow transplant secondary to ITP at age 11 Plan: The patient was seen and evaluated by Dr. Rankin Chest x-ray and labs reviewed No further recommendations at this time Repeat chest x-ray in a.m. Probable discharge in a.m. I, the cosigning physician, performed a history & physical examination of the patient. Lungs sounds with crackles in the bilateral posterior bases. Maintaining good O2 saturations in the 90s on room air. I discussed the assessment and plan of care with my nurse practitioner, Shilpa Chairez. I attest to the above consultation as dictated by her. Time with Patient: Greater than 30
[2019-08-10] MEDS ORDERED: ONDANSETRON 4 MG/2 ML VIAL IVP PRN (17:02)
[2019-08-11] MEDS: SODIUM CHLORIDE 0.9% 1,000 ML IV SCH (07:58)
[2019-08-11 11:41] VITALS: BP 111/74; PULSE 56; RESP 15; TEMP 98.2
--- NOTE | 2019-08-11 12:40 | P.DS ---
Providers Date of admission: 08/09/19 21:33 Attending physician: Gabriela Morrison Consults: 08/09/19 21:35 Consult Physician Stat Consulting Provider: Diamond Razo Consult Reason/Comments: covid19, bilateral pneumonia Do you want consulting provider notified?: Yes Primary care physician: Sue Ralph [facility] Course: 29-year-old female patient who follows with Dr. Rogers as her primary care provider. 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 Otherwise she is healthy. No chronic illnesses. No known home medications. She is active and rides her bike often. She has been having ongoing issues over the past 2 weeks with cough congestion fever generalized weakness and fatigue and myalgias. She presented here to the emergency room yesterday for the same. She did test positive for the CoVID 19 virus. Chest x- ray revealed bilateral lower lobe pneumonia. White count 4.7. Hemoglobin 9.1. D-dimer 0.7. Sodium 134. Potassium 4.0. Creatinine 0.86. LDH 635. C- reactive protein 82. She is seen today in follow-up in the regular medical floor. She is awake and alert in no acute distress. She is maintaining good O2 saturations in the 90s on room air. She has had a T-max of 100.8. Currently afebrile. She is still quite weak and fatigued. 08/11/2019 Patient is clinically doing well patient doesn't have any fever last 24 hours patient is feeling much better will be discharged today. she was counseled regarding isolation at home. PHYSICAL EXAMINATION: GENERAL: The patient is alert and oriented x3, not in any acute distress. Well developed, well nourished. HEENT: Pupils are round and equally reacting to light. EOMI. No scleral icterus. No conjunctival pallor. Normocephalic, atraumatic. No pharyngeal erythema. No thyromegaly. CARDIOVASCULAR: S1 and S2 present. No murmurs, rubs, or gallops. PULMONARY: Chest is clear to auscultation, no wheezing or crackles. ABDOMEN: Soft, nontender, nondistended, normoactive bowel sounds. No palpable organomegaly. MUSCULOSKELETAL: No joint swelling or deformity. EXTREMITIES: No cyanosis, clubbing, or pedal edema. NEUROLOGICAL: Gross neurological examination did not reveal any focal deficits. SKIN: No rashes. Note: Because of COVID 19 isolation, some of the history and physical exam findings or indirect and obtained from nursing staff, and other physician examinations to avoid unnecessary contact with the patient. Please up and eventually from yesterday for further details of hospitalization course and other medical problems Patient Condition at Discharge: Serious Plan - Discharge Summary Discharge Rx Participant: No New Discharge Prescriptions: New Albuterol Inhaler [Ventolin Hfa Inhaler] 2 puff INHALATION RT-QID PRN #1 inhaler PRN Reason: Shortness Of Breath Or Wheezing Discharge Medication List Albuterol Inhaler [Ventolin Hfa Inhaler] 2 puff INHALATION RT-QID PRN #1 inhaler 08/11/19 [Rx] Follow up Appointment(s)/Referral(s): Leon Rogers MD [Primary Care Provider] - 08/14/19 10:10 am (This will be a telehealth call. Please call office before appointment to set up for telehealth) Patient Instructions/Handouts: Viral Pneumonia (DC) Activity/Diet/Wound Care/Special Instructions: covid instructions given Discharge Disposition: HOME SELF-CARE
--- NOTE | 2019-08-11 12:55 | P.PN ---
Subjective Progress Note Date: 08/11/19 Principal diagnosis: Acute CoVID 19 pneumonitis This is a very pleasant 29-year-old female patient who follows with Dr. Rogers as her primary care provider. 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 Otherwise she is healthy. No chronic il lnesses. No known home medications. She is active and rides her bike often. She has been having ongoing issues over the past 2 weeks with cough congestion fever generalized weakness and fatigue and myalgias. She presented here to the emergency room yesterday for the same. She did test positive for the CoVID 19 virus. Chest x-ray revealed bilateral lower lobe pneumonia. White count 4.7. Hemoglobin 9.1. D-dimer 0.7. Sodium 134. Potassium 4.0. Creatinine 0.86. LDH 635. C-reactive protein 82. She is seen today in follow-up in the regular medical floor. She is awake and alert in no acute distress. She is maintaining good O2 saturations in the 90s on room air. She has had a T-max of 100.8. Currently afebrile. She is still quite weak and fatigued. the patient is seen today 08/11/2019 in follow-up on the regular medical floor. She is currently sitting up in a chair at the bedside. Awake and alert in no acute distress. No worsening shortness of breath, cough or congestion. She is maintaining O2 saturations in the upper 90s on room air. She's afebrile. Hemodynamically stable. Blood cultures reveal no growth. Objective - Vital Signs Vital signs: Vital Signs Temp 98.2 F 08/11/19 11:10 Pulse 56 L 08/11/19 11:10 Resp 15 08/11/19 11:10 BP 111/74 08/11/19 11:10 Pulse Ox 98 08/11/19 11:10 Intake & Output 08/10/19 08/11/19 08/11/19 18:59 06:59 18:59 Intake Total 472 500 Output Total 1300 Balance 472 -800 Intake: IV 250 Sodium Chloride 0.9% 1, 250 000 ml @ 100 mls/hr IV . Q10H [place] Rx#:[id number] Oral 222 500 Output: Urine 1300 Other: Voiding Method Toilet # Voids 1 - Exam GENERAL EXAM: Alert, weak, fatigued, pleasant 29-year-old female patient, on room air, comfortable in no apparent distress. HEAD: Normocephalic. EYES: Normal reaction of pupils, equal size. NOSE: Clear with pink turbinates. THROAT: No erythema or exudates. NECK: No masses, no JVD. CHEST: No chest wall deformity. LUNGS: Equal air entry with crackles in the bilateral posterior bases. CVS: S1 and S2 normal with no audible murmur, regular rhythm. ABDOMEN: No hepatosplenomegaly, normal bowel sounds, no guarding or rigidity. SPINE: No scoliosis or deformity SKIN: No rashes CENTRAL NERVOUS SYSTEM: No focal deficits, tone is normal in all 4 extremities. EXTREMITIES: There is no peripheral edema. No clubbing, no cyanosis. Peripheral pulses are intact. - Labs CBC & Chem 7: 08/09/19 20:08 08/09/19 20:08 Labs: Microbiology - Last 24 Hours (Table) 08/09/19 23:45 Blood Culture - Preliminary Blood No Growth after 24 hours Assessment and Plan Assessment: Acute CoVID 19 pneumonia Elevated inflammatory markers secondary to above History of bone marrow transplant secondary to ITP at age 11 Plan: The patient was seen and evaluated by Dr. Rankin She is stable from the pulmonary standpoint for discharge Follow-up with her PCP in one week I, the cosigning physician, performed a history & physical examination of the patient. Lungs sounds with crackles in the bilateral posterior bases. Maintaining good O2 saturations in the 90s on room air. I discussed the assessment and plan of care with my nurse practitioner, Shilpa Chairez. I attest to the above consultation as dictated by her.
--- NOTE | 2019-08-14 02:51 | CDI ---
Documentation Clarification Form Date: 08/14/2019 From: Jose D Bruno Phone: If you have a question about this query, please contact Jia Scott, [employer] at [phone] between 8am and 5pm. Admit Date: 08/09/2019 Discharge Date: 08/11/2019 Patient Name: Shavonne Cisneros Visit Number: [id number] ATTENTION: The Clinical Documentation Specialists (CDI) and [facility] Coding Staff appreciate your assistance in clarifying documentation. Please respond to the clarification below the line at the bottom and electronically sign. The CDI & [facility] Coding staff will review the response and follow-up if needed. Please note: Queries are made part of the Legal Health Record. If you have any questions, please contact the author of this message via ITS. Dear William Melvin., The patient presented with the Covid 19 Pneumonia. History/Risk Factors: Anxiety, Bone Marrow transplant, ITP. WBC 4.7 Lactic acid: 1.2 Blood cultures: NA Vitals signs on admission: Temperature 99.8 F H Pulse Rate 90 81 Respiratory 18 20 Blood Pressure 121/83 127/80 O2 Sat by Pulse 98 99 Other Clinical Indicators: Treatment: IV fluids Other: H&P stated "Sepsis secondary to Covid 19 infection, patient will be monitored of one more night continue with IV fluid supportive care". In your professional opinion, please clarify if these findings signify one of the following conditions, whether the condition, if known: Condition Sepsis ruled out SIRS, without underlying infectious process Sepsis Severe Sepsis Septic Shock Other, please specify Unable to determine Already dictated will not add anything this query is not necessary. MTDD
== END 2019-08-11 13:30 | disposition home or self-care (01) | DRG 871 ==
LOC: EC 19:04 → 4SSUR 21:33
PROVIDERS: ADMIT Hospitalist; ATTEND Hospitalist
DX: A41.89 Other specified sepsis (principal); U07.1 COVID-19; J12.89 Other viral pneumonia; E87.1 Hypo-osmolality and hyponatremia; Z94.81 Bone marrow transplant status; D72.810 Lymphocytopenia; E86.0 Dehydration; E86.1 Hypovolemia; F41.9 Anxiety disorder, unspecified; Z87.891 Personal history of nicotine dependence; Z86.2 Personal history of diseases of the blood and blood-forming organs and certain disorders involving the immune mechanism
CPT/HCPCS: 36415; 71045; 80053; 81001; 81025; 82728; 83605; 83615; 83735; 84145; 85025; 85379; 85610; 85730; 86140; 87040; 87635; 96361; 96374; 99285

== ENCOUNTER 2020-04-23 19:28 | Emergency (ER) | payer OTHER ==
[2020-04-23 19:36] VITALS: BP 129/84; PULSE 63; RESP 18; TEMP 97.4
[2020-04-23] MEDS ORDERED: AZITHROMYCIN 500 MG TAB PO STA (19:58)
--- NOTE | 2020-04-23 19:58 | ED ---
ENT HPI - General Chief complaint: Dental/Oral Stated complaint: Dental Pain Time Seen by Provider: 04/23/20 19:38 Source: patient Mode of arrival: ambulatory Limitations: no limitations - History of Present Illness Initial comments: Patient is a 30-year-old female presenting to the emergency Department with complaints of increasing left upper dental pain for the past 3 days. Patient states he had an issue with this same tooth a few months ago, did contact her dentist which put her on azithromycin and her pain went away. She states she doesn't appointment with her dentist in May to have the tooth pulled. Over the past 3 days her pain has increased again and she is requesting antibiotics. She states she's been taking Motrin which has been helping with her pain. She denies any fever or chills, no nausea or vomiting. She has no further complaints. She states she is not secondary to tubal ligation. - Related Data Previous Rx's Medication Instructions Recorded Albuterol Inhaler [Ventolin Hfa 2 puff INHALATION RT-QID PRN #1 08/11/19 Inhaler] inhaler Azithromycin [Zithromax] 500 mg PO DAILY #4 tab 04/23/20 Allergies Allergy/AdvReac Type Severity Reaction Status Date / Time amoxicillin Allergy Unknown Verified 04/23/20 19:56 Review of Systems ROS Statement: Those systems with pertinent positive or pertinent negative responses have been documented in the HPI. ROS Other: All systems not noted in ROS Statement are negative. Past Medical History Past Medical History: No Reported History Additional Past Medical History / Comment(s): ITP, bone marrow transplant age 11 History of Any Multi-Drug Resistant Organisms: None Reported Past Surgical History: No Surgical Hx Reported Additional Past Surgical History / Comment(s): Bone marrow transplant Past Anesthesia/Blood Transfusion Reactions: No Reported Reaction Past Psychological History: Anxiety Smoking Status: Never smoker Past Alcohol Use History: None Reported Past Drug Use History: None Reported - Past Family History Mother History Unknown: Yes Family Medical History: Cancer General Exam - General Exam Comments Initial Comments: GENERAL: Patient is well-developed and well-nourished. Patient is nontoxic and in no acute distress. HEAD: Atraumatic, normocephalic. EYES: Pupils equal round and reactive to light, extraocular movements intact, sclera anicteric, conjunctiva are normal. Eyelids were unremarkable. ENT: TMs normal, nares patent, oropharynx clear without exudates. Moist mucous membranes. No visible dental abscess seen, pain with palpation of tooth #15. No facial swelling. NECK: Normal range of motion, supple without lymphadenopathy or JVD. LUNGS: Unlabored respirations. Breath sounds clear to auscultation bilaterally and equal. No wheezes rales or rhonchi. HEART: Regular rate and rhythm without murmurs, rubs or gallops. ABDOMEN: Soft, nontender, normoactive bowel sounds. No guarding, no rebound. No masses appreciated. : Deferred MUSCULOSKELETAL: Normal extremities with adequate strength and normal range of motion, no pitting or edema. No clubbing or cyanosis. NEUROLOGICAL: Patient is alert and oriented x 3. Motor and sensory are also intact. Cranial nerves II through XII grossly intact. Symmetrical smile. Normal speech, normal gait. PSYCH: Normal mood, normal affect. SKIN: Warm, Dry, normal turgor, no rashes or lesions noted. Limitations: no limitations Course Vital Signs 04/23/20 19:33 Temperature 97.4 F L Pulse Rate 63 Respiratory 18 Rate Blood Pressure 129/84 O2 Sat by Pulse 96 Oximetry Medical Decision Making - Medical Decision Making Patient is 22-year-old female here for left-sided dental pain has been increasing for the past 3 days. She does have an appointment with her dentist next month to have tooth extraction. She is requesting antibiotics. She states azithromycin did help her in the past and she wishes to use that again. I will give her first dose tonight, rest sent to her pharmacy. She will continue with Motrin for pain relief. She'll follow-up with her dentist. She stable for discharge and in agreement with this plan of care. Disposition Clinical Impression: Toothache Disposition: HOME SELF-CARE Condition: Stable Instructions (If sedation given, give patient instructions): Toothache (ED) Additional Instructions: Please return to the Emergency Department if symptoms worsen or any other concer ns. Take antibiotic as prescribed. Follow up with your dentist. Continue with ibuprofen for pain relief. Prescriptions: Azithromycin [Zithromax] 500 mg PO DAILY #4 tab Is patient prescribed a controlled substance at d/c from ED?: No Referrals: Leon Rogers MD [Primary Care Provider] - 1-2 days
== END 2020-04-23 20:08 | disposition home or self-care (01) ==
LOC: EC 19:28
DX: K08.89 Other specified disorders of teeth and supporting structures (principal); Z88.0 Allergy status to penicillin
CPT/HCPCS: 99282

== ENCOUNTER 2020-06-29 17:31 | Emergency (ER) | payer OTHER ==
[2020-06-29 18:44] VITALS: BP 125/73; PULSE 65; RESP 18; TEMP 98
--- NOTE | 2020-06-29 19:09 | ED ---
General Adult HPI - General Chief complaint: Allergic Reaction Stated complaint: Allergic Reaction Time Seen by Provider: 06/29/20 18:56 Source: patient, RN notes reviewed, old records reviewed Mode of arrival: ambulatory - History of Present Illness Initial comments: 30-year-old female presents for evaluation of lip and tongue swelling as well as rash on the inner portion of her lips. This been ongoing for approximately one week. She does wear makeup but states this is not new. She denies any new foods. She is not on any antihypertensive medications. No throat swelling, no difficulty breathing. No vomiting. She does report some redness to her lips as well. Symptoms seem to be intermittent over the past one week. - Related Data Previous Rx's Medication Instructions Recorded Albuterol Inhaler [Ventolin Hfa 2 puff INHALATION RT-QID PRN #1 08/11/19 Inhaler] inhaler Azithromycin [Zithromax] 500 mg PO DAILY #4 tab 04/23/20 methylPREDNISolone Dose Pack 4 mg PO DIRECTED #21 package 06/29/20 [Medrol Dose Pack] Allergies Allergy/AdvReac Type Severity Reaction Status Date / Time amoxicillin Allergy Unknown Verified 06/29/20 18:45 Review of Systems ROS Statement: Those systems with pertinent positive or pertinent negative responses have been documented in the HPI. ROS Other: All systems not noted in ROS Statement are negative. Past Medical History Past Medical History: No Reported History Additional Past Medical History / Comment(s): ITP, bone marrow transplant age 11 History of Any Multi-Drug Resistant Organisms: None Reported Past Surgical History: No Surgical Hx Reported Additional Past Surgical History / Comment(s): Bone marrow transplant Past Anesthesia/Blood Transfusion Reactions: No Reported Reaction Past Psychological History: Anxiety Smoking Status: Never smoker Past Alcohol Use History: Occasional Past Drug Use History: None Reported - Past Family History Mother History Unknown: Yes Family Medical History: Cancer General Exam General appearance: alert, in no apparent distress Head exam: Present: atraumatic, normocephalic Eye exam: Present: normal appearance, PERRL ENT exam: Present: mucous membranes moist, other (Erythema on the mucosal surface of her lips both upper and lower lips. No tongue or uvular swelling. No tonsillar swelling or exudate.) Neck exam: Present: normal inspection. Absent: tenderness, meningismus Respiratory exam: Present: normal lung sounds bilaterally. Absent: respiratory distress, wheezes Cardiovascular Exam: Present: regular rate, normal rhythm GI/Abdominal exam: Present: soft. Absent: distended, tenderness Extremities exam: Present: normal inspection, normal capillary refill. Absent: pedal edema Neurological exam: Present: alert, oriented X3, CN II-XII intact. Absent: motor sensory deficit Psychiatric exam: Present: normal affect, normal mood Skin exam: Present: warm, dry, intact. Absent: cyanosis, diaphoretic Course Vital Signs 06/29/20 18:39 Temperature 98.0 F Pulse Rate 65 Respiratory 18 Rate Blood Pressure 125/73 O2 Sat by Pulse 98 Oximetry Medical Decision Making - Medical Decision Making 22-year-old female well-appearing with some lip swelling and erythema and swelling is quite minimal. No tongue or uvular involvement. We will trial oral steroids with close outpatient follow-up. Return parameters discussed. Disposition Clinical Impression: Allergic reaction Disposition: HOME SELF-CARE Condition: Good Instructions (If sedation given, give patient instructions): General Allergic Reaction (ED) Prescriptions: methylPREDNISolone Dose Pack [Medrol Dose Pack] 4 mg PO DIRECTED #21 package Is patient prescribed a controlled substance at d/c from ED?: No Referrals: Leon Rogers MD [Primary Care Provider] - 1-2 days Time of Disposition: 19:08
== END 2020-06-29 19:18 | disposition home or self-care (01) ==
LOC: EC 17:31
DX: T78.40XA Allergy, unspecified, initial encounter (principal); R22.0 Localized swelling, mass and lump, head; R21 Rash and other nonspecific skin eruption; F41.9 Anxiety disorder, unspecified
CPT/HCPCS: 99283